=== PATIENT | female | born 1975 | race Two or more races ===

== ENCOUNTER 2018-03-29 15:46 | Emergency (ER) | payer SELFPAY ==
[~2018-03-29] VITALS: Ht 170.2 cm; Wt 117.9 kg
--- NOTE | 2018-03-29 16:05 | NUR ---
Dr. Rivas here to see pt for MSE.
[2018-03-29] MEDS ORDERED: ACETAMINOPHEN 325 MG TABLET ONE (16:30)
[2018-03-29] MEDS ORDERED: ACETAMINOPHEN 325 MG TABLET PO ONE (16:30)
--- NOTE | 2018-03-29 16:36 | NUR ---
Pt left with radiologist for CT head.
--- NOTE | 2018-03-29 16:44 | NUR ---
Pt returned from CT head with radiologist. Pt stable and nad noted upon returning.
--- NOTE | 2018-03-29 17:04 | NUR ---
Patient discharged to home in stable conditon. Written and verbal after care instructions given. Patient verbalizes understanding of instructions. Pt instructed not to drive.
== END 2018-03-29 17:04 | disposition home or self-care (01) ==
LOC: ER 15:50
DX: S09.90XA Unspecified injury of head, initial encounter (principal); V53.5XXA Driver of pick-up truck or van injured in collision with car, pick-up truck or van in traffic accident, initial encounter; Y93.89 Activity, other specified; Y92.410 Unspecified street and highway as the place of occurrence of the external cause; Y99.8 Other external cause status
CPT/HCPCS: 70450; A4663